=== PATIENT | male | born 1960 | race Caucasian/White ===

== ENCOUNTER 2017-07-12 13:40 | Inpatient (IN) | payer OTHER ==
[2017-07-12] MEDS ORDERED: MAGNE/ALUM HYDROXD 30 ML UCUP ONE (13:57)
[2017-07-12] MEDS ORDERED: ONDANSETRON 4 MG/2 ML VIAL ONE (13:57)
[2017-07-12] MEDS ORDERED: MORPHINE 4 MG/ML SYR ONE (13:57)
[2017-07-12] MEDS ORDERED: LIDOCAINE VISCOUS 2% SOLN 15 ML UDC ONE (13:57)
[2017-07-12] MEDS ORDERED: AMIODARONE IN DEXTROSE,ISO-OSM 360 MG/200 ML BAG IV ONE (14:04)
[2017-07-12] MEDS ORDERED: AMIODARONE HCL 150 MG/3 ML INJ IV ONE (14:04)
[2017-07-12] MEDS ORDERED: D5W 0 ML IV ONE (14:05)
[2017-07-12] MEDS ORDERED: Magnesium Sulfate 2gm IVPB 2 G/50 ML BAG IV ONE (14:07)
[2017-07-12] MEDS ORDERED: RSI MEDICATION KIT IV ONE (14:08)
[2017-07-12] MEDS ORDERED: PROPOFOL 1,000 MG/100 ML VIAL IV ONE ×2 (14:15→16:33)
[2017-07-12] MEDS ORDERED: AMIODARONE Inj 900 MG/18 mL (=50 MG/ML) VIAL IV ONE (14:16)
[2017-07-12] MEDS ORDERED: LABETALOL 20 MG/4ML SYRINGE IV ONE (14:16)
[2017-07-12] MEDS ORDERED: HEPARIN 5000 UNIT/ML 1 ML VIAL ONE (14:17)
[2017-07-12] MEDS ORDERED: HEPARIN/D5W 25,000 UNIT/500 ML BAG IV ONE (14:17)
[2017-07-12] MEDS ORDERED: ASPIRIN 600 MG/SUPP PR ONE ×2 (14:27→14:29)
[2017-07-12] MEDS ORDERED: HEPA 1000U/500MLS 0 UNIT/0 ML BAG IV ONE (14:28)
[2017-07-12] MEDS ORDERED: NITROGLYCERIN 100 MCG/ML SYR (for cath lab use only) IV ONE (14:28)
[2017-07-12] MEDS ORDERED: LIDOCAINE 1% 20 ML MDV ONE (14:28)
[2017-07-12] MEDS ORDERED: ATROPINE SULF 1 MG/10 ML SYR IV ONE (14:28)
[2017-07-12] MEDS ORDERED: NA CHLORIDE 0.9% 50 ML ONE (14:28)
[2017-07-12] MEDS ORDERED: NA CHLORIDE 0.9% 0 ML ONE (14:28)
[2017-07-12] MEDS ORDERED: MIDAZOLAM HCL 2 MG/2 ML INJ ONE ×3 (14:29→15:16)
--- NOTE | 2017-07-12 14:31 | RAD REPORT ---
EXAM DESCRIPTION: RAD - Chest Single View - 07/12/2017 2:26 pm CLINICAL HISTORY: Chest pain. COMPARISON: 03/23/2017 FINDINGS: Portable technique limits examination quality. Tip the endotracheal tube is above the norm. The lungs are grossly clear. The heart is upper limit normal in size. No displaced fractures. IMPRESSION: ET tube tip is above the norm.
--- NOTE | 2017-07-12 14:32 | ER ---
Nurse's Notes [facility] Name: Armand Melgoza Age: 56 yrs Sex: Male : 1960 Arrival Date: 07/12/2017 Time: 13:43 Bed External Waiting [place] [place] MD: Diagnosis: ST elevation (STEMI) myocardial infarction of anterior wall;Ventricular tachycardia Presentation: 07/12 13:47 Presenting complaint: Patient states: Sternal chest pain that started suddenly 45 min aj DRESS MARKER after eating lunch. Patient reports pain radiated to left arm and neck. Seen counter waitress/waiter in March, stress test was good. Transition of care: patient was not received from another setting of care. Onset of symptoms was July 12, 2017. Initial Sepsis Screen: Does the patient meet any 2 criteria? No. Patient's initial sepsis screen is negative. Does the patient have a suspected source of infection? No. Patient's initial sepsis screen is negative. Care prior to arrival: None. 13:47 Method Of Arrival: Ambulatory aj 13:47 Acuity: TEAGAN 3 aj Triage Assessment: 13:50 General: Appears in no apparent distress. uncomfortable, Behavior is calm, cooperative, aj appropriate for age. Pain: Complains of pain in chest Pain radiates to left arm Pain currently is 4 out of 10 on a pain scale. Neuro: Level of Consciousness is awake, alert, obeys commands, Oriented to person, place, time, situation. Cardiovascular: Reports chest pain, Capillary refill < 3 seconds in bilateral fingers Patient's skin is warm and dry. Respiratory: Airway is patent Respiratory effort is even, unlabored, Respiratory pattern is regular, symmetrical. GI: No signs and/or symptoms were reported involving the gastrointestinal system. Derm: Skin is intact, is healthy with good turgor, Skin is pink, warm \T\ dry. normal. Historical: - Allergies: 13:50 Sulfa (Sulfonamide Antibiotics); aj - Home Meds: 13:50 None [Active]; aj - PMHx: 13:50 None; aj - PSHx: 13:50 Back; aj - Immunization history:: Adult Immunizations up to date. - Social history:: Smoking status: Patient/guardian denies using tobacco. - Family history:: not pertinent. - Hospitalizations: : No recent hospitalization is reported. Screenin:55 Abuse screen: Denies threats or abuse. Denies injuries from another. Nutritional aj screening: No deficits noted. Tuberculosis screening: No symptoms or risk factors identified. Fall Risk None identified. Assessment: 13:53 Reassessment: No changes from previously documented assessment. See triage. aj 14:00 Reassessment: Entered patient's room and administered GI cocktail. Patient took aj medication with no difficulty. Reported pain increased from 4/10-8/10. Approximately 30 seconds after drinking GI Cocktail patient became unresponsive and monitor displayed Vtach. Patient stopped breathing and no pulse was palpated. CPR initiated and code 99 called. 14:02 General: Appears distressed, Behavior is unresponsive. Cardiovascular: Rhythm is aj ventricular tachycardia. Respiratory: Airway is compromised Respiratory effort is relaxed, Respiratory pattern is hypoventilation. Vital Signs: 13:50 BP 161 / 113; Pulse 78; Resp 19; Temp 97.8; Pulse Ox 97% on R/A; Weight 111.13 kg; aj Height 5 ft. 10 in. (177.80 cm); Pain 4/10; 14:16 BP 184 / 108; Pulse 125; Resp 14 A; Pulse Ox 100% on ETT vent; aj 14:35 BP 97 / 83; Pulse 89; Resp 14 A; Pulse Ox 100% on ETT vent; aj 13:50 Body Mass Index 35.15 (111.13 kg, 177.80 cm) aj ED Course: 13:43 Patient arrived in ED. tw3 13:47 Gudelia Silverman, RN is Primary Nurse. aj 13:48 Pedro Brady MD is Attending Physician. gs 13:48 Attending Physician role handed off by Pedro Brady MD rn 13:48 Jim Brock MD is Attending Physician. rn 13:50 Triage completed. aj 13:50 Arm band placed on left wrist. Patient placed in an exam room. EKG completed in triage. aj Results shown to MD. 13:50 Patient has correct armband on for positive identification. Placed in gown. Bed in low aj position. network consultant on. Pulse ox on. NIBP on. 13:53 Inserted saline lock: 20 gauge in right antecubital area, using aseptic technique. aj Blood collected. By Luis associate marketing manager. 14:02 Assist provider with cardioversion (unsynchronized) with pads, for treatment of V tach aj with 150 joules Set up for procedure. Performed by Jim Brock MD Monitored with avionics repair technician, pulse ox, Post procedure rhythm is sinus rhythm. Patient tolerated well. O2 via BVM mask. 14:03 EKG done, by septic tank service technician. reviewed by Jim Brock MD. tc 14:05 Assist provider with cardioversion (unsynchronized) with pads, for treatment of V tach aj with 200 joules Post procedure rhythm is sinus rhythm. Patient tolerated well. 14:10 Inserted saline lock: 18 gauge in left antecubital area, using aseptic technique. aj 14:14 Assisted provider with intubation using 7.5 mm ETT via oral route. ET tube secured at Set up intubation tray. Intubated by Jim Brock MD Placement verified by CO2 detector w/ + color change, auscultating bilateral breath sounds, Patient tolerated well. 14:21 Inserted saline lock: 20 gauge in right hand, using aseptic technique. aj 14:24 Hernandez cath inserted, using sterile technique, 16 Fr., by ms, balloon inflated. aj 14:25 X-ray completed. Portable x-ray completed in exam room. Patient tolerated procedure sw well. 14:26 XRAY Chest (1 view) In Process Unspecified. EDMS 14:31 Rosemary Olson MD is Hospitalizing Provider. rn 14:35 Report given to senior laboratory technician. aj 15:18 Assist provider with cardioversion (unsynchronized) with pads, for treatment of V tach aj with 200 joules Set up for procedure. Performed by Gudelia Silverman RN Monitored with avionics repair technician, pulse ox, Post procedure rhythm is sinus rhythm. Patient tolerated well. 15:20 Primary Nurse role handed off by Gudelia Silverman, ZACK aj Administered Medications: 13:52 Drug: GI Cocktail without - (Maalox Suspension 30 ml, Lidocaine Liquid 2 % 15 aj ml) Route: PO; 15:33 Follow up: Response: Other aj 14:07 Drug: amiodarone 150 mg Volume: 100 ml; Route: IVPB; Infused Over: 10 mins; Site: right aj antecubital; 15:30 Follow up: Response: Cardiac rhythm changed; IV Status: Completed infusion; IV Intake: aj 100ml 14:09 Drug: Magnesium Sulfate 2 grams Route: IVPB; Site: right antecubital; aj 15:28 Follow up: Response: Cardiac rhythm changed; IV Status: Completed infusion aj 14:10 Drug: Etomidate 20 mg Route: IVP; Site: left antecubital; aj 15:29 Follow up: Response: No adverse reaction aj 14:10 Drug: Succinylcholine 120 mg Route: IVP; Site: right antecubital; aj 15:29 Follow up: Response: No adverse reaction aj 14:16 Drug: Propofol 5 mcg/kg/min Route: IV; Rate: calculated rate; Site: left antecubital; aj 15:28 Follow up: Response: No adverse reaction; IV Status: Infusion continued upon transfer aj 14:17 Drug: amiodarone 900 mg, D5W 500 ml Route: IVPB; Rate: 1 mg/min; Site: right aj antecubital; 15:33 Follow up: IV Status: Infusion continued upon transfer aj 14:21 Drug: Labetalol 5 mg Route: IVP; Infused Over: 2 mins; Site: right antecubital; aj 15:33 Follow up: Response: Blood pressure is lowered aj 14:23 Drug: Heparin (TN-Bolus No thrombolytic) - HEParin 60 units/kg {Co-Signature: hb aj (Rafaela Wright RN).} Route: IVP; Site: left antecubital; 15:32 Follow up: Response: No adverse reaction aj 14:26 Drug: Heparin (TN Drip) 12 units/kg/hr - (HEParin 67810 units, D5W 500 ml) aj {Co-Signature: hb (Rafaela Wright RN).} Route: IV; Rate: calculated rate; Site: right hand; 15:31 Follow up: Response: No adverse reaction; IV Status: Infusion continued upon transfer aj 14:28 Drug: morphine 4 mg Route: IVP; Site: right hand; aj 15:34 Follow up: Response: Pain is decreased aj 14:28 Drug: Zofran 4 mg Route: IVP; Site: right hand; aj 15:34 Follow up: Response: No adverse reaction; No change in condition aj 14:29 Drug: Aspirin Suppository 300 mg Route: NJ; aj 15:29 Follow up: Response: No adverse reaction aj 14:31 Drug: Versed 2 mg Route: IVP; Site: right hand; aj 15:29 Follow up: Response: Other aj Intake: 15:30 IV: 100ml; Total: 100ml. aj Outcome: 14:31 Decision to Hospitalize by Provider. rn 15:05 Patient left the ED. ag 15:35 Patient left the ED. aj Signatures: Dispatcher [employer] Gudelia Lomas RN RN aj Nieto, Roman, MD MD rn Alexandra Masterson, [facility] Chichi Browning Shannon sw Wade, [facility] tw3 Pedro Brady MD MD gs Heather Baxter RN hb
--- NOTE | 2017-07-12 14:33 | EDPHYS ---
Physician Documentation [facility] Name: Armand Melgoza Age: 56 yrs Sex: Male : 1960 Arrival Date: 07/12/2017 Time: 13:43 Bed External Waiting Private MD: ED Physician Jim Brock HPI: 07/12 13:50 This 56 yrs old Male presents to ER via Ambulatory with complaints of Chest rn Pain. 13:50 The patient or guardian reports chest pain that is located primarily in the substernal rn area. Onset: 45 minute(s) ago. The pain radiates to the left arm, Associated signs and symptoms: Pertinent positives: cough, Pertinent negatives: abdominal pain, diaphoresis, dizziness, lightheadedness, syncope. The chest pain is described as dull, a heaviness. Duration: The patient or guardian reports a single episode, that is still ongoing. Severity of pain: At its worst the pain was moderate in the emergency department the pain has improved. The patient has experienced a previous episode. Reports had just finished eating, felt sudden onset of substernal chest pain, radiates to jaw and left arm, + mild cough and "sinus issues", no fever, states chest pain eval in March, had normal stress test. Pain slowly improving on its own. . Historical: - Allergies: 13:50 Sulfa (Sulfonamide Antibiotics); aj - Home Meds: 13:50 None [Active]; aj - PMHx: 13:50 None; aj - PSHx: 13:50 Back; aj - Immunization history:: Adult Immunizations up to date. - Social history:: Smoking status: Patient/guardian denies using tobacco. - Family history:: not pertinent. - Hospitalizations: : No recent hospitalization is reported. ROS: 13:50 Constitutional: Negative for fever, chills, and weight loss, Eyes: Negative for injury, rn pain, redness, and discharge, Neck: Negative for injury, pain, and swelling, Cardiovascular: Negative for palpitations, and edema, Respiratory: Negative for wheezing, and pleuritic chest pain, Abdomen/GI: Negative for abdominal pain, nausea, vomiting, diarrhea, and constipation, Back: Negative for injury and pain, MS/Extremity: Negative for injury and deformity, Skin: Negative for injury, rash, and discoloration, Neuro: Negative for headache, weakness, numbness, tingling, and seizure. Exam: 13:50 Constitutional: This is a well developed, well nourished patient who is awake, alert, rn appears anxious Head/Face: Normocephalic, atraumatic. Eyes: Pupils equal round and reactive to light, extra-ocular motions intact. Lids and lashes normal. Conjunctiva and sclera are non-icteric and not injected. Cornea within normal limits. Periorbital areas with no swelling, redness, or edema. Neck: Trachea midline, no thyromegaly or masses palpated, and no cervical lymphadenopathy. Supple, full range of motion without nuchal rigidity, or vertebral point tenderness. No Meningismus. Cardiovascular: Regular rate and rhythm with a normal S1 and S2. No gallops, murmurs, or rubs. Normal PMI, no JVD. No pulse deficits. Respiratory: Lungs have equal breath sounds bilaterally, clear to auscultation and percussion. No rales, rhonchi or wheezes noted. No increased work of breathing, no retractions or nasal flaring. Abdomen/GI: Soft, non-tender, with normal bowel sounds. No distension or tympany. No guarding or rebound. No evidence of tenderness throughout. Back: No spinal tenderness. No costovertebral tenderness. Full range of motion. MS/ Extremity: Pulses equal, no cyanosis. Neurovascular intact. Full, normal range of motion. Equal circumference. Neuro: Awake and alert, GCS 15, oriented to person, place, time, and situation. Cranial nerves II-XII grossly intact. Motor strength 5/5 in all extremities. Sensory grossly intact. Cerebellar exam normal. Normal gait. Vital Signs: 13:50 BP 161 / 113; Pulse 78; Resp 19; Temp 97.8; Pulse Ox 97% on R/A; Weight 111.13 kg; aj Height 5 ft. 10 in. (177.80 cm); Pain 4/10; 14:16 BP 184 / 108; Pulse 125; Resp 14 A; Pulse Ox 100% on ETT vent; aj 14:35 BP 97 / 83; Pulse 89; Resp 14 A; Pulse Ox 100% on ETT vent; aj 13:50 Body Mass Index 35.15 (111.13 kg, 177.80 cm) Procedures: 14:39 Cardioversion: (unsynchronized) using defib paddles, for treatment of V tach, with 200 rn joules X 3. Post procedure rhythm is sinus rhythm, the patient tolerated the procedure well. 17:15 Intubation: Ventilated with 100% NRB prior to procedure. O2 saturation prior to per diem rn was 95 %. Intubated orally using # 4 Kenneth blade with 7.5 mm ETT. was successful on first attempt. Cricoid pressure applied during procedure. Tube secured with ETT ritchie at right side of mouth measured 23 cm at lip. Placement verified by CXR, CO2 detector with (+) color change, auscultating bilateral breath sounds, O2 saturation after procedure was 98 %. Patient tolerated well. MDM: 13:48 Patient medically screened. rn 14:19 ED course: Contacted Dr. Michaels, regarding new ecg showing STEMI, cardioverted three rn times due to vtach/torsades, stressed need for cath now, not sure patient is stable enough to transfer, is checking if he has staff to cath here vs transfer. . 14:29 Differential diagnosis: acute myocardial infarction. Data reviewed: vital signs, nurses rn notes, EKG. ED course: Pt with episode of Vtach, shocked 3 times, given magnesium, amiodarone, now irregular but has a pulse, was talking and combative afterwards, intubated for airway protection and control, heparin started, Dr. Michaels states will cath right now, activating team. . 14:32 ED course: Pt with active SD, evolving, waiting on farm labor contractor.. rn 14:41 ED course: Notified Dr. Sparks of admission \\T\\ [id number]. rn 14:44 ED course: Pt just left to farm labor contractor. Sinus rhythm. HR < 100, intubated, good BP.. rn 07/12 13:49 Order name: Basic Metabolic Panel; Complete Time: 08:20 rn 07/12 13:49 Order name: BNP; Complete Time: 08:20 rn 07/12 13:49 Order name: CBC with Diff; Complete Time: 08:20 rn 07/12 13:49 Order name: Ckmb; Complete Time: 08:20 rn 07/12 13:49 Order name: CPK; Complete Time: 08:20 rn 07/12 13:49 Order name: LFT's; Complete Time: 08:20 rn 07/12 13:49 Order name: Troponin (emerg Dept Use Only); Complete Time: 08:20 rn 07/12 13:49 Order name: XRAY Chest (1 view); Complete Time: 14:33 rn 07/12 13:49 Order name: Lipase; Complete Time: 08:20 rn 07/12 13:49 Order name: EKG; Complete Time: 13:49 rn 07/12 13:49 Order name: Cardiac monitoring; Complete Time: 15:09 rn 07/12 13:49 Order name: EKG - Nurse/Tech; Complete Time: 15:09 rn 07/12 13:49 Order name: IV Saline Lock; Complete Time: 15:09 rn 07/12 13:49 Order name: Labs collected and sent; Complete Time: 15:09 rn 07/12 14:41 Order name: EKG Electrocardiogram EDMS 07/12 14:41 Order name: EKG Electrocardiogram EDMS 07/12 13:49 Order name: O2 Per Protocol; Complete Time: 15:10 rn 07/12 13:49 Order name: O2 Sat Monitoring; Complete Time: 15:35 rn EC:34 Rate is 95 beats/min. Rhythm is irregular. NV interval is normal. QRS interval is rn normal. QT interval is normal. No Q waves. T waves are Normal. Clinical impression: Anterior SD - acute. Interpreted by me. Administered Medications: 13:52 Drug: GI Cocktail without - (Maalox Suspension 30 ml, Lidocaine Liquid 2 % 15 aj ml) Route: PO; 15:33 Follow up: Response: Other aj 14:07 Drug: amiodarone 150 mg Volume: 100 ml; Route: IVPB; Infused Over: 10 mins; Site: right aj antecubital; 15:30 Follow up: Response: Cardiac rhythm changed; IV Status: Completed infusion; IV Intake: aj 100ml 14:09 Drug: Magnesium Sulfate 2 grams Route: IVPB; Site: right antecubital; aj 15:28 Follow up: Response: Cardiac rhythm changed; IV Status: Completed infusion aj 14:10 Drug: Etomidate 20 mg Route: IVP; Site: left antecubital; aj 15:29 Follow up: Response: No adverse reaction aj 14:10 Drug: Succinylcholine 120 mg Route: IVP; Site: right antecubital; aj 15:29 Follow up: Response: No adverse reaction aj 14:16 Drug: Propofol 5 mcg/kg/min Route: IV; Rate: calculated rate; Site: left antecubital; aj 15:28 Follow up: Response: No adverse reaction; IV Status: Infusion continued upon transfer aj 14:17 Drug: amiodarone 900 mg, D5W 500 ml Route: IVPB; Rate: 1 mg/min; Site: right aj antecubital; 15:33 Follow up: IV Status: Infusion continued upon transfer aj 14:21 Drug: Labetalol 5 mg Route: IVP; Infused Over: 2 mins; Site: right antecubital; aj 15:33 Follow up: Response: Blood pressure is lowered aj 14:23 Drug: Heparin (SD-Bolus No thrombolytic) - HEParin 60 units/kg {Co-Signature: hb aj (Rafaela Wright RN).} Route: IVP; Site: left antecubital; 15:32 Follow up: Response: No adverse reaction aj 14:26 Drug: Heparin (SD Drip) 12 units/kg/hr - (HEParin 08936 units, D5W 500 ml) aj {Co-Signature: hb (Rafaela Wright RN).} Route: IV; Rate: calculated rate; Site: right hand; 15:31 Follow up: Response: No adverse reaction; IV Status: Infusion continued upon transfer aj 14:28 Drug: morphine 4 mg Route: IVP; Site: right hand; aj 15:34 Follow up: Response: Pain is decreased aj 14:28 Drug: Zofran 4 mg Route: IVP; Site: right hand; aj 15:34 Follow up: Response: No adverse reaction; No change in condition aj 14:29 Drug: Aspirin Suppository 300 mg Route: NV; aj 15:29 Follow up: Response: No adverse reaction aj 14:31 Drug: Versed 2 mg Route: IVP; Site: right hand; aj 15:29 Follow up: Response: Other aj Disposition: 14:29 Critical Care:. rn Disposition: 07/12/17 14:31 Hospitalization ordered by Rosemary Olson for Inpatient Admission. Preliminary diagnosis are ST elevation (STEMI) myocardial infarction of anterior wall, Ventricular tachycardia. - Bed requested for Intensive Care Unit. - Status is Inpatient Admission. aj - Condition is Serious. - Problem is new. - Symptoms have improved. UTI on Admission? No Critical care time excluding procedures: :29 Critical care time: Bedside Care: 25 minutes, Consultation: 5 minutes, Family rn Intervention: 5 minutes. Total time: 35 minutes Signatures: Dispatcher [employer] Gudelia Lomas, RN Denise Henriquez RN RN iw Nieto, Roman, MD MD rn Gallardo, Ana ag Heather Baxter RN hb
[2017-07-12] MEDS ORDERED: HEPA 1000U/500MLS 1,000 UNIT/500 ML BAG IV ONE (15:06)
[2017-07-12 15:31] LABS: Absolute Lymphocytes (CBC) 1.7 K/uL (0.7-4.9); Absolute Monocytes 0.9 K/uL (0.1-1.3); Basophils % 0.9 % (0-1.3); Hematocrit 47.9 % (39.6-49.0); MCH 29.9 pg (27.0-35.0); MCV 88.1 fL (80-100); MPV 8.6 fL (7.6-11.3); Monocytes % 10.5 % (3.3-12.3); RBC Red Blood Cell Count 5.44 M/uL (4.33-5.43)
[2017-07-12] MEDS ORDERED: CLOPIDOGREL 75 MG TABLET ONE (15:45)
[2017-07-12 16:00] LABS: Potassium 3.8 mEq/L (3.6-5.0)
[2017-07-12 16:06] LABS: Albumin 4.5 g/dL (3.2-5.5); Bilirubin Direct 0.1 mg/dL (0-0.2); Protein, Total 7.7 g/dL (6.0-8.3)
[2017-07-12] MEDS ORDERED: NA CHLORIDE 0.9% 1,000 ML ONE ×2 (16:40→17:01)
[2017-07-12] MEDS ORDERED: ONDANSETRON 4 MG/2 ML VIAL IV PRN (17:09)
[2017-07-12 17:11] VITALS: BMI 36.3
--- NOTE | 2017-07-12 17:18 | P.HP ---
Certification for Inpatient Patient admitted to: Inpatient With expected LOS: >2 Midnights Practitioner: I am a practitioner with admitting privileges, knowledge of patient current condition, hospital course, and medical plan of care. Services: Services provided to patient in accordance with Admission requirements found in Title 42 Section 412.3 of the Code of Federal Regulations Patient History Date of Service: 07/12/17 Reason for admission: acute IA History of Present Illness: Mr Melgoza is a 56 years old male who in march start complaining of chest pain episodes. He went to see Dr Hopkins, who did a stress test, and according to his , the study was normal. His symptoms then were assumed as anxiety. Today , after having lunch, Mr Melgoza start with severe chest pain, substernal, 10/10 of intensity, radiated to left arm, associated with nausea and diaphoresis. He asked his to drive him to the hospital. At arrival to ED, while the patient was having his initial assessment, he had an episode of ventricular tachycardia, then he become unresponsive. He got shocked 3 times, and got stabilezed. 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 Initial EKG showed sinus rhythm without ischemic changes, however, after V-Tach episode, new EKG showd ST Elevation on anterior leads. Allergies Sulfa (Sulfonamide Antibiotics) Allergy (Verified 03/23/17 13:50) Itching/Hives/Rash Home Medications: Albuterol Inhaler [Ventolin Inhaler*] 2 puff IH Q6H PRN #1 [email or web address] 03/24/17 - Past Medical/Surgical History Diabetic: No Past Medical History: Reviewed- Non-Contributory -: BACK SURGERY - RUPTURED DISC - Family History Father -: Heart disease, Hypertension, Cancer Notes: SKIN CANCER - Social History Smoking Status: Never smoker (chew tobacco) Alcohol use: Yes CD- Drugs: No Caffeine use: Yes Place of Residence: Home Review of Systems is unable to be obtained Physical Examination - Physical Exam General: In no apparent distress, Other (sedated) HEENT: Atraumatic, PERRLA, Mucous membr. moist/pink, Sclerae nonicteric Neck: Supple, 2+ carotid pulse no bruit, No LAD, Without JVD or thyroid abnormality Respiratory: Clear to auscultation bilaterally, Normal air movement Cardiovascular: Regular rate/rhythm, Normal S1 S2 Gastrointestinal: Normal bowel sounds, No tenderness Musculoskeletal: No tenderness Integumentary: No rashes Neurological: Normal tone, Sensation intact, Normal reflexes 2+ Lymphatics: No axilla or inguinal lymphadenopathy - Studies Laboratory Data (last 24 hrs) 07/12/17 13:50: WBC 8.7, Hgb 16.3, Hct 47.9, Plt Count 272 07/12/17 13:50: B-Natriuretic Peptide 13 07/12/17 13:50: Sodium 141, Potassium 3.8, BUN 24 H, Creatinine 1.24, Glucose 77 , Total Bilirubin 1.0, AST 26, ALT 41, Alkaline Phosphatase 61, Lipase 46 Assessment and Plan - Problems (Diagnosis) (1) STEMI (ST elevation myocardial infarction) Current Visit: Yes Status: Acute Qualifiers: Involved coronary artery: LAD coronary artery Qualified Code(s): I21.02 - ST elevation (STEMI) myocardial infarction involving left anterior descending coronary artery (2) Cardiac arrest Current Visit: Yes Status: Acute (3) Sustained VT (ventricular tachycardia) Current Visit: Yes Status: Acute (4) Obesity Current Visit: Yes Status: Acute Qualifiers: Obesity type: due to excess calories Obesity classification: adult class 2 (BMI 35 - 39.9) Serious obesity comorbidity presence: unspecified whether serious comorbidity present Body mass index: BMI 36.0-36.9 Qualified Code(s) : E66.09 - Other obesity due to excess calories; Z68.36 - Body mass index (BMI) 36.0-36.9, adult; Z68.36 - Body mass index (BMI) 36.0-36.9, adult - Plan The patient was taken to analytical laboratory technician, it was found 2 lesions at LAD, 100% and 99%. He had placed 2 stents. The patient then went to ICU, remain intubated. Will follow up Cardiology team recommendations. - Advance Directives Does patient have a Living Will: Yes Does patient have a Durable POA for Healthcare: Yes - Code Status/Comfort Care Code Status Assessed: Yes Code Status: Full Code
[2017-07-12] MEDS ORDERED: NITROGLYCERIN 0.4 MG/TAB SL PRN (17:22)
[2017-07-12] MEDS ORDERED: FENTANYL CITR 100 MCG/2 ML IV PRN (17:32)
[2017-07-12] MEDS ORDERED: HALOPERIDOL LACT 5 MG/ML INJ IV PRN (17:32)
[2017-07-12] MEDS ORDERED: MIDAZOLAM HCL 2 MG/2 ML INJ IV PRN (17:32)
[2017-07-12] MEDS ORDERED: LORazepam 2 MG/ML VIAL IV PRN (17:32)
[2017-07-12] MEDS ORDERED: SUCCINYLCHOLINE 20 MG/ML (10 ML) IV ONE (17:37)
[2017-07-12] MEDS ORDERED: ETOMIDATE 20 MG/10 ML VIAL IV ONE (17:37)
[2017-07-12] MEDS ORDERED: NA CHLORIDE 0.9% 1,000 ML IV SCH (18:00)
[2017-07-12] MEDS: PROPOFOL 1,000 MG/100 ML VIAL IV PRN (20:00)
[2017-07-12] MEDS ORDERED: AMIODARONE HCL 900 MG in Dextrose 5%-Water 482 ML IV SCH (20:00)
[2017-07-12] MEDS: ATORVASTATIN 80 MG TAB PO SCH (21:50)
[2017-07-12] MEDS: FAMOTIDINE 20 MG/2 ML VIAL IV SCH (22:30)
[2017-07-13] MEDS: PROPOFOL 1,000 MG/100 ML VIAL IV PRN ×5 (01:30→14:00)
--- NOTE | 2017-07-13 01:44 | CON ---
History Of Present Illness: Mr. Melgoza is a 56-year-old white male without any significant past medi tanya history. He was admitted on 07/12/2017 through the emergency room with acute OH and sudden , status post cardioversion and intubation. The patient was seen and taken to the catheterization laboratory technician that same day from the emergency room for emergency heart catheterization, which ended up with angioplasty and stent of his LAD. Apparently, he is 56 years old. Has no previous cardiac past medical history. C omplained suddenly of chest pain and impending doom at home, was brought to the emergency room by his . When they got to the emergency room, the patient had a cardiac arrest, ventricular fibrillati on, torsades de pointes, intubated, shocked, successfully back in normal rhythm but showed an acute a nterolateral OH and I was consulted. The patient was taken from the emergency room to the catheterization laboratory technician f or emergency heart catheterization. Past Medical History: Negative. Allergies: INCLUDE SULFA. Review of Systems: Negative. Social History: Negative. Family History: Noncontributory. Medications: At home are none. Physical Examination: General: He appeared to be rather obese. Vital Signs: In the catheterization laboratory technician were within normal limits. His blood pressure was 110/70. His pulse w as 80 with occasional PVCs and triplets. HEENT: Negative. The patient was intubated. Neck: Supple without any bruit, JVD, or thyromegaly. Chest: Clear. Cardiac: Revealed a regular rhythm and rate with occasional ectopy. Abdomen: Obese. Extremities: Revealed trace edema. Diagnostic Data: His chest x-ray was normal. EKG showed acute anterolateral OH. Troponin is elevat ed. Rest of the blood work was adequate. Impression And Plan: The patient is status post acute anterolateral myocardial infarction, status po st cardiac arrest secondary to ventricular fibrillation and torsades de pointes, intubated. We will take him to the catheterization laboratory technician emergently for a cardiac catheterization to define his coronary anatomy and hopefully intervene successfully. We will continue IV amiodarone for now. We will stop the heparin for the catheterization laboratory technician procedure and we will decide on further therapy after the catheterization. BEVERLY/SANYA Voice ID: [id number] Report ID: [id number]
--- NOTE | 2017-07-13 04:41 | OP ---
Surgeon: Alexandr Michaels MD Equal Opportunity Representative: Maisha Preston. Procedure: Emergency heart catheterization, angioplasty and stent of the LAD, selective coronary art martha angiogram and left ventriculogram. Indication: Acute MD and status post cardiac arrest. Mr. Melgoza is a 56-year-old white male, erin t to the emergency room in cardiac arrest and torsades de pointes. After cardioversion, he had an ac [place] anterolateral MD. He was intubated. I was consulted. The patient was brought to the hemodialysis lab technician, intubated with anesthesia on board on protocol. Received some additional Versed for sedation because of agitation. Description Of Procedure: He was prepped and draped in the routine sterile fashion. A 6-Malawian roach th was introduced in the right common femoral artery and StarClose was to be used to close the case, but we left sheath in for an arterial line since he was going to be in the ICU, intubated for blood g as monitoring. Deejay catheter 6-Malawian was introduced, injected the left main, which showed a comp lete occlusion of the LAD close to the ostium. RCA was large dominant. Circumflex was small and non dominant, but normal. RCA was free of disease. An XBLAD 3.5 catheter with side holes was used as a guide. Wanette wire was used to cross the lesion successfully. Multiple dilatations with a 2.5 x 15 Emerge balloon re-established flow. It was obvious he had a very proximal stenosis and a sequential stenosis just distal to that before the first diagonal. Two overlapping stents 2.5 x 12 and 2 x 16 S ynergy stent was used after multiple dilatation of the balloon. The result was 0% residual. Left ve ntriculogram was done showing no wall motion abnormalities. There were no arrhythmias during the pro cedure. ST elevation subsided after the stent. Total conscious sedation was 45 minutes. Complications: None. Blood Loss: 5 cc. Final Diagnosis: Status post acute anterolateral myocardial infarction, status post successful angio plasty and stent of the LAD. The patient received Angiomax during the procedure. He was on heparin and amiodarone drip and he came to the hemodialysis lab technician. Heparin was stopped. 600 mg of Plavix were given b y the NG tube. Aspirin 325 mg was given by the NG tube. Operators: Myself. Plan: To send him to the ICU hopefully extubating the next day or so. Case was discussed with the nini manley and Dr. Brock in the emergency room. BEVERLY/SANYA Voice ID: [id number] Report ID: [id number]
[2017-07-13 05:15] LABS: Absolute Lymphocytes (CBC) 1.1 K/uL (0.7-4.9); Absolute Neutrophil 11.6 K/uL (1.8-8.0); Basophils % 0.4 % (0-1.3); Eosinophils % 0.5 % (0-4.4); Hematocrit 45.1 % (39.6-49.0); Lymphocytes % 7.7 % (15.3-44.8); MCH 29.4 pg (27.0-35.0); MCV 88.7 fL (80-100); MPV 8.4 fL (7.6-11.3); Monocytes % 7.5 % (3.3-12.3); RBC Red Blood Cell Count 5.09 M/uL (4.33-5.43)
[2017-07-13 05:23] LABS: Potassium 3.9 mEq/L (3.6-5.0)
[2017-07-13 05:54] LABS: Arterial Blood Carboxyhemoglob 1.3 % (0-1.5); Blood Gas Oxyhemoglobin 91.6 % (94-97); Blood O2 Saturation 94.5 % (92-98.5)
--- NOTE | 2017-07-13 06:58 | EKG ---
Test Date: 2017-07-12 Test Time: 14:25:25 Usability Strategist: JACKIE MEASUREMENT RESULTS: Intervals: Rate: 95 [place]: 172 QRSD: 112 QT: 380 QTc: 477 [place]: P: 72 [place]: 172 QRS: -16 T: -28 INTERPRETIVE STATEMENTS: Sinus rhythm with fusion complexes Voltage criteria for left ventricular hypertrophy Anteroseptal infarct, possibly acute Lateral injury pattern ACUTE [place] Abnormal ECG Compared to ECG 07/12/2017 14:13:24 Fusion complex(es) now present Atrial fibrillation no longer present Ventricular premature complex(es) no longer present Left-axis deviation no longer present ST (T wave) deviation no longer present Myocardial infarct finding still present Electronically Signed On 07-13-17 06:57:52 CDT by Zackary Clements
--- NOTE | 2017-07-13 06:59 | EKG ---
Test Date: 2017-07-12 Test Time: 13:43:13 Research Chemist: STACIE MEASUREMENT RESULTS: Intervals: Rate: 77 [place]: 166 QRSD: 84 QT: 412 QTc: 466 [place]: P: 40 [place]: 166 QRS: -18 T: 58 INTERPRETIVE STATEMENTS: Sinus rhythm with premature atrial complexes with aberrant conduction Otherwise normal ECG Compared to ECG 03/23/2017 10:58:47 Atrial premature complex(es) now present Aberrant conduction of supraventricular beat(s) now present Ventricular premature complex(es) no longer present Electronically Signed On 07-13-17 06:59:14 CDT by Zackary Clements
--- NOTE | 2017-07-13 06:59 | EKG ---
Test Date: 2017-07-12 Test Time: 14:13:24 Watch Inspector Final Movement: JACKIE MEASUREMENT RESULTS: Intervals: Rate: 154 [place]: QRSD: 90 QT: 304 QTc: 486 [place]: P: [place]: QRS: -38 T: -40 INTERPRETIVE STATEMENTS: Atrial fibrillation with rapid ventricular response with premature ventricular or aberrantly conducted complexes Left axis deviation ST elevation, consider anterolateral injury or acute infarct ACUTE [place] Abnormal ECG Compared to ECG 07/12/2017 13:43:13 Acute myocardial infarct finding now present Sinus rhythm no longer present Electronically Signed On 07-13-17 06:59:06 CDT by Zackary Clements
--- NOTE | 2017-07-13 07:07 | RAD REPORT ---
EXAM DESCRIPTION: RAD - Chest Single View - 07/13/2017 6:41 am CLINICAL HISTORY: Respiratory distress, intubation COMPARISON: July 12 TECHNIQUE: AP portable chest image was obtained 0628 hours . FINDINGS: Lung volumes are low. No new infiltrate, mass or pulmonary edema. Heart size and vasculatu re within normal limits for supine portable imaging. ET tube remains in good position mid aortic arch , several cm above the norm. NG tube is in place. Tip and side port are within the stomach which is now decompressed. No pneumothorax or large pleural effusion. No gross bony abnormality seen. No acut e aortic findings suspected. IMPRESSION: No new or progressive pulmonary edema, infiltrate or lung parenchymal abnormality. ET tube in good position. NG tube placement with tip and side port within a decompressed stomach.
[2017-07-13] MEDS ORDERED: ASPIRIN EC 81 MG TAB PO SCH (09:00)
--- NOTE | 2017-07-13 09:14 | EKG ---
Test Date: 2017-07-13 Test Time: 08:51:39 Gas Derrick Operator: LIAN MEASUREMENT RESULTS: Intervals: Rate: 80 [place]: 158 QRSD: 86 QT: 394 QTc: 454 [place]: P: 32 [place]: 158 QRS: 3 T: 59 INTERPRETIVE STATEMENTS: Normal sinus rhythm Nonspecific T wave abnormality Abnormal ECG Compared to ECG 07/12/2017 14:25:25 T-wave abnormality now present Fusion complex(es) no longer present Left ventricular hypertrophy no longer present Myocardial infarct finding no longer present Electronically Signed On 07-13-17 09:14:14 CDT by Zackary Clements
[2017-07-13 09:28] LABS: Magnesium 2.3 mg/dL (1.8-2.5); Phosphorus 2.9 mg/dL (2.5-4.3)
[2017-07-13] MEDS: CLOPIDOGREL 75 MG TABLET PO SCH (09:37)
[2017-07-13] MEDS: ASPIRIN 81 MG CHEWABLE TABLET PO SCH (09:37)
[2017-07-13] MEDS: FAMOTIDINE 20 MG/2 ML VIAL IV SCH ×2 (10:19→21:58)
[2017-07-13] MEDS ORDERED: AMIODARONE HCL IV SCH (11:00)
[2017-07-13] MEDS ORDERED: D5W IV SCH (11:00)
--- NOTE | 2017-07-13 12:06 | P.CNS ---
Date of Consult: 07/13/17 Reason for Consult: Cardiac arrest status post stent placement Chief Complaint: acute CA History of Present Illness: Patient is 50s past 6 years of age admitted with an acute CA status post stent placement cardioversion currently on a ventilator was admitted with sudden onset of chest pain VFib was found to have an anterolateral CA. Patient is currently stable on a ventilator and propofol drip. No significant past medical history the was recently evaluated by Cardiology and had a stress test done Allergies Sulfa (Sulfonamide Antibiotics) Allergy (Verified 03/23/17 13:50) Itching/Hives/Rash Home Medications: NK [No Home Meds] 07/12/17 - Past Medical/Surgical History Diabetic: No -: BACK SURGERY - RUPTURED DISC - Family History Father Medical History: Heart disease, Hypertension, Cancer Notes: SKIN CANCER Mother History Unknown: Yes Medical History: Diabetes - Social History Alcohol use: Yes CD- Drugs: No Caffeine use: Yes Place of Residence: Home Review of Systems is unable to be obtained Physical Examination Temp Pulse Resp BP Pulse Ox 98.9 F 74 17 119/67 94 07/13/17 04:00 07/13/17 11:00 07/13/17 09:00 07/13/17 11:00 07/13/17 11:00 General: Unresponsive Neck: Supple Respiratory: Clear to auscultation bilaterally Cardiovascular: No edema, Regular rate/rhythm Gastrointestinal: Normal bowel sounds, Soft and benign Laboratory Data (last 24 hrs) 07/12/17 13:50: WBC 8.7, Hgb 16.3, Hct 47.9, Plt Count 272 07/12/17 13:50: B-Natriuretic Peptide 13 07/12/17 13:50: Sodium 141, Potassium 3.8, BUN 24 H, Creatinine 1.24, Glucose 77 , Total Bilirubin 1.0, AST 26, ALT 41, Alkaline Phosphatase 61, Lipase 46 - Problems (1) Cardiac arrest Onset Date: 07/13/17 Current Visit: Yes Status: Acute Plan: Patient is 56 years of age no significant past medical history admitted with cardiac arrest status post angioplasty labs all reviewed unremarkable apart from elevated troponin continue with supportive her evaluate mental status tomorrow continue with full ventilatory support and sedation for today
--- NOTE | 2017-07-13 12:29 | PN ---
Subjective: Mr. Megloza is 1-day status post acute coronary intervention for an ST-elevation CA to pr oximal LAD with ventricular fibrillation, cardiac arrest, and shock. The patient is still intubated in ICU, sedated. I have asked everyone to keep him sedated until after the sheath is removed. The s mirna is in place. The groin site does not have swelling or bleeding. He has not had any Lovenox or Angiomax in some 20 hours now, so it is a good time to remove the sheath. We used a StarClose devic e at the bedside. I think we could start to allow him to wake up sometime this afternoon, perhaps ex tubate, but I would rather not have an extubation attempt done until this afternoon at the earliest. ELIZABETH/SANYA Voice ID: [id number] Report ID: [id number]
--- NOTE | 2017-07-13 14:09 | P.PN ---
Subjective Date of Service: 07/13/17 Chief Complaint: acute DC Continue mechanical ventiltor support for today. Physical Examination - Vital Signs Temperature: 98.9 F Blood Pressure: 119/67 Pulse: 74 Respirations: 17 Pulse Ox (%): 94 - Physical Exam General: Other (sedated ) Neck: Supple, JVD not distended Respiratory: Clear to auscultation bilaterally, Normal air movement Cardiovascular: Regular rate/rhythm, Normal S1 S2 Gastrointestinal: Normal bowel sounds, No tenderness Musculoskeletal: No tenderness Integumentary: No rashes - Studies Laboratory Data (last 24 hrs) 07/12/17 13:50: WBC 8.7, Hgb 16.3, Hct 47.9, Plt Count 272 07/12/17 13:50: B-Natriuretic Peptide 13 07/12/17 13:50: Sodium 141, Potassium 3.8, BUN 24 H, Creatinine 1.24, Glucose 77 , Total Bilirubin 1.0, AST 26, ALT 41, Alkaline Phosphatase 61, Lipase 46 Medications List Reviewed: Yes Assessment And Plan - Current Problems (Diagnosis) (1) STEMI (ST elevation myocardial infarction) Onset Date: 07/13/17 Current Visit: Yes Status: Acute Qualifiers: Involved coronary artery: LAD coronary artery Qualified Code(s): I21.02 - ST elevation (STEMI) myocardial infarction involving left anterior descending coronary artery (2) Cardiac arrest Onset Date: 07/13/17 Current Visit: Yes Status: Acute (3) Sustained VT (ventricular tachycardia) Onset Date: 07/13/17 Current Visit: Yes Status: Acute (4) Obesity Onset Date: 07/13/17 Current Visit: Yes Status: Acute Qualifiers: Obesity type: due to excess calories Obesity classification: adult class 2 (BMI 35 - 39.9) Serious obesity comorbidity presence: unspecified whether serious comorbidity present Body mass index: BMI 36.0-36.9 Qualified Code(s) : E66.09 - Other obesity due to excess calories; Z68.36 - Body mass index (BMI) 36.0-36.9, adult; Z68.36 - Body mass index (BMI) 36.0-36.9, adult - Plan 1) STEMI: Heart cath shows 2 lesions in LED, requiring 2 stent placement. Continue on Ventilator support for at least 1 more day, at this point patient is stable. Continue F/U by Dr Dailey and Dr Clements.
[2017-07-13] MEDS ORDERED: EPINEPHrine 1 MG/10 ML SYR IV ONE (14:28)
[2017-07-13] MEDS ORDERED: MAGNESIUM SULF 1GM/2ML VIAL IV ONE (14:28)
[2017-07-13] MEDS ORDERED: METOPROLOL TAR 50 MG TAB PO ONE (19:25)
[2017-07-13] MEDS ORDERED: METOPROLOL TAR 50 MG TAB ONE (19:27)
--- NOTE | 2017-07-13 20:40 | EKG ---
Test Date: 2017-07-13 Test Time: 17:46:56 Speedometer Mechanic: ISAÍAS MEASUREMENT RESULTS: Intervals: Rate: 90 [place]: 158 QRSD: 96 QT: 400 QTc: 489 [place]: P: 33 [place]: 158 QRS: 11 T: 83 INTERPRETIVE STATEMENTS: Normal sinus rhythm Anteroseptal infarct, possibly acute Lateral injury pattern Abnormal ECG Compared to ECG 07/13/2017 08:51:39 Myocardial infarct finding now present Electronically Signed On 07-13-17 20:40:23 CDT by Zackary Clements
[2017-07-13] MEDS ORDERED: HYDROCORTISONE SUC 100 MG INJ IV SCH (21:00)
[2017-07-13] MEDS: ATORVASTATIN 80 MG TAB PO SCH (21:57)
[2017-07-13] MEDS: Morphine 2 MG/2 ML SYR IV PRN (23:09)
[2017-07-14] MEDS: Morphine 2 MG/2 ML SYR IV PRN ×2 (04:00→19:40)
[2017-07-14 05:10] LABS: Absolute Lymphocytes (CBC) 1.1 K/uL (0.7-4.9); Absolute Monocytes 1.3 K/uL (0.1-1.3); Absolute Neutrophil 11.3 K/uL (1.8-8.0); Basophils % 0.7 % (0-1.3); Eosinophils % 0.5 % (0-4.4); Hematocrit 42.1 % (39.6-49.0); Lymphocytes % 8.1 % (15.3-44.8); MCH 29.3 pg (27.0-35.0); MCV 88.9 fL (80-100); MPV 8.6 fL (7.6-11.3); Monocytes % 9.2 % (3.3-12.3); RBC Red Blood Cell Count 4.73 M/uL (4.33-5.43)
[2017-07-14 05:47] LABS: Albumin 3.6 g/dL (3.2-5.5); Bilirubin Total 1.6 mg/dL (0.3-1.2); Phosphorus 2.8 mg/dL (2.5-4.3); Potassium 4.1 mEq/L (3.6-5.0); Protein, Total 6.4 g/dL (6.0-8.3)
[2017-07-14] MEDS: METOPROLOL TAR 50 MG TAB PO SCH ×3 (06:22→22:17)
[2017-07-14] MEDS ORDERED: COLCHICINE 0.6 MG TAB PO PRN (08:35)
[2017-07-14] MEDS: CLOPIDOGREL 75 MG TABLET PO SCH (08:57)
[2017-07-14] MEDS: ASPIRIN 81 MG CHEWABLE TABLET PO SCH (08:57)
[2017-07-14] MEDS: COLCHICINE 0.6 MG TAB PO SCH ×2 (08:58→22:17)
[2017-07-14] MEDS: FAMOTIDINE 20 MG/2 ML VIAL IV SCH (09:00)
--- NOTE | 2017-07-14 09:36 | P.PN ---
Subjective Date of Service: 07/14/17 Chief Complaint: acute PA The patient is awake and alert, extubated yesterday, no chest pain, no SOB. Physical Examination - Vital Signs Temperature: 98.8 F Blood Pressure: 104/67 Pulse: 63 Respirations: 16 Pulse Ox (%): 95 - Physical Exam General: Alert, In no apparent distress Respiratory: Clear to auscultation bilaterally, Normal air movement Cardiovascular: Regular rate/rhythm, Normal S1 S2 Gastrointestinal: Normal bowel sounds, No tenderness Musculoskeletal: No tenderness Integumentary: Skin lesion (bilateral arm erithema aroud IV site) Neurological: Normal speech, Normal tone, Normal affect - Studies Medications List Reviewed: Yes Assessment And Plan - Current Problems (Diagnosis) (1) STEMI (ST elevation myocardial infarction) Onset Date: 07/13/17 Current Visit: Yes Status: Acute Qualifiers: Involved coronary artery: LAD coronary artery Qualified Code(s): I21.02 - ST elevation (STEMI) myocardial infarction involving left anterior descending coronary artery (2) Cardiac arrest Onset Date: 07/13/17 Current Visit: Yes Status: Acute (3) Sustained VT (ventricular tachycardia) Onset Date: 07/13/17 Current Visit: Yes Status: Acute (4) Obesity Onset Date: 07/13/17 Current Visit: Yes Status: Acute Qualifiers: Obesity type: due to excess calories Obesity classification: adult class 2 (BMI 35 - 39.9) Serious obesity comorbidity presence: unspecified whether serious comorbidity present Body mass index: BMI 36.0-36.9 Qualified Code(s) : E66.09 - Other obesity due to excess calories; Z68.36 - Body mass index (BMI) 36.0-36.9, adult; Z68.36 - Body mass index (BMI) 36.0-36.9, adult - Plan 1) STEMI: Heart cath on 07/12/17, shows 2 lesions in LED, requiring 2 stent placement. He remain intubated for 24 Hr, he was successfully extubated yesterday night. Currently the patient is asymtpomatic, hemodynamically stable. Continue beta blocier, plavix, asa, statins. plan to transfer to medical floor. Follow up Cardiology recommendations.
--- NOTE | 2017-07-14 11:37 | RAD REPORT ---
EXAM DESCRIPTION: VAS - Extrem Venous W Compress Alejandro - 07/14/2017 11:03 am CLINICAL HISTORY: Arm pain and swelling. COMPARISON: None. TECHNIQUE: Real-time sonographic interrogation of the left and right upper extremity deep venous sys tems was performed. FINDINGS: Normal compressibility, flow augmentation, phasic flow and spontaneous flow is identified in both the left and right upper extremity deep venous systems. Thrombus is present in the right cephalic vein proximal to distal. Thrombus is also present in the ce phalic vein on the left the distal to mid forearm. IMPRESSION: Thrombosis involving both cephalic veins is present as detailed. Nurse Yajaira in the ICU was notified 07/14/17 at 11:33 am by telephone.
[2017-07-14] MEDS: Enoxaparin 120 MG/0.8 ML SYR SQ SCH ×2 (12:56→22:18)
--- NOTE | 2017-07-14 15:40 | EKG ---
Test Date: 2017-07-14 Test Time: 04:12:12 Aluminizer: RT T MEASUREMENT RESULTS: Intervals: Rate: 62 RI: 170 QRSD: 100 QT: 448 QTc: 454 [place]: P: 39 RI: 170 QRS: 8 T: 92 INTERPRETIVE STATEMENTS: Normal sinus rhythm Septal infarct, age undetermined Abnormal ECG Compared to ECG 07/13/2017 17:46:56 No significant changes Electronically Signed On 07-14-17 15:37:50 CDT by Alexandr Michaels
--- NOTE | 2017-07-14 16:53 | ECHO ---
HEIGHT: 5 ft 10 in WEIGHT: 253 lb 0 oz DATE OF STUDY: 07/14/[address]: Zackary Clements MD 2-DIMENSIONAL: YES M.MODE: YES DOPPLER: YES COLOR FLOW: YES TDS: PORTABLE: DEFINITY: BUBBLE STUDY: DIAGNOSIS: CONGEATIVE HEART FAILURE CARDIAC HISTORY: CATHERIZATION: YES SURGERY: YES PROSTHETIC VALVE: NO PACEMAKER: NO MEASUREMENTS (cm) DIASTOLIC (NORMALS) SYSTOLIC (NORMALS) IVSd 1.2 (0.6-1.2) LA Diam 3.8 (1.9-4.0) LVEF 55% LVIDd 4.9 (3.5-5.7) LVIDs 3.5 (2.0-3.5) %FS 29% LVPWd 1.1 (0.6-1.2) Ao Diam (2.0-3.7) 2 DIMENSIONAL ASSESSMENT: RIGHT ATRIUM: NORMAL LEFT ATRIUM: NORMAL RIGHT VENTRICLE: NORMAL LEFT VENTRICLE: NORMAL TRICUSPID VALVE: NORMAL MITRAL VALVE: NORMAL PULMONIC VALVE: NORMAL AORTIC VALVE: NORMAL PERICARDIAL EFFUSION: NONE AORTIC ROOT: NORMAL LEFT VENTRICULAR WALL MOTION: MILD ANTEROAPICAL HYPOKINESIS DOPPLER/COLOR FLOW: NORMAL COMMENTS: MILD ANTEROAPICAL HYPOKINESIS. NO THROMBUS. NO EFFUSION. TECHNOLOGIST: LOLA MOREL
[2017-07-14] MEDS: ATORVASTATIN 80 MG TAB PO SCH (22:17)
--- NOTE | 2017-07-15 07:25 | RAD REPORT ---
EXAM DESCRIPTION: Dorys Single View07/15/2017 6:29 am CLINICAL HISTORY: Fever COMPARISON: July 13 FINDINGS: Endotracheal and nasogastric tubes have been removed. The lungs appear clear of acute infiltrate. The heart is normal size IMPRESSION: No acute abnormalities displayed
[2017-07-15] MEDS: COLCHICINE 0.6 MG TAB PO SCH (08:41)
[2017-07-15] MEDS: METOPROLOL TAR 50 MG TAB PO SCH (08:41)
[2017-07-15] MEDS: ASPIRIN 81 MG CHEWABLE TABLET PO SCH (08:43)
[2017-07-15] MEDS: CLOPIDOGREL 75 MG TABLET PO SCH (08:43)
[2017-07-15] MEDS: Enoxaparin 120 MG/0.8 ML SYR SQ SCH (08:44)
[2017-07-15 08:57] VITALS: O2SAT 94
--- NOTE | 2017-07-15 11:19 | PN ---
Date of Progress Note: 07/14/2017 Subjective: Mr. Melgoza had come in on 07/12/2017 with an acute anterior PA status post cardiac arres t, status post emergency angioplasty and stenting of his LAD, was doing very well. EKG showed some n ew ST changes, but the patient is not having any chest pain. He has not had any further rhythm issue s. Asymptomatic. Examination is normal. I will discontinue the amiodarone on Mr. Melgoza today. We will continue low-dose beta blockers, statin, aspirin, and Plavix. Echocardiography that was done t [place] showed a fairly reserved ejection fraction with some anteroapical hypokinesis, but no thrombus. I will move him to telemetry, hopefully send him home in the next day or two. BEVERLY/SANYA Voice ID: [id number] Report ID: [id number]
[2017-07-15 12:17] VITALS: BP 119/70; TEMP 97.4
--- NOTE | 2017-07-15 14:02 | P.DS ---
Admission Date: 07/12/17 Discharge Date: 07/15/17 Primary Care Provider: Dr. Garvin; Cardiology-Dr. Wetzel Disposition: ROUTINE DISCHARGE Discharge Condition: GOOD Reason for Admission: acute CO Consultations: Cardiology-Dr. Michaels Procedures: Heart catheterization: Surgeon: Alexandr Michaels MD Procedure: Emergency heart catheterization, angioplasty and stent of the LAD, selective coronary artery angiogram and left ventriculogram. Indication: Acute CO and status post cardiac arrest. Mr. Melgoza is a 56-year- old white male, brought to the emergency room in cardiac arrest and torsades de pointes. After cardioversion, he had an acute anterolateral CO. He was intubated. The patient was brought to the wharf labourer, intubated with anesthesia on board on protocol. Received some additional Versed for sedation because of agitation. Description Of Procedure: It showed complete occlusion of the LAD close to the ostium. RCA was large dominant. Circumflex was small and nondominant, but normal. RCA was free of disease. It was obvious he had a very proximal stenosis and a sequential stenosis just distal to that before the first diagonal. Two overlapping stents 2.5 x 12 and 2 x 16 Synergy stent was used after multiple dilatation of the balloon. The result was 0% residual. Left ventriculogram was done showing no wall motion abnormalities. There were no arrhythmias during the procedure. ST elevation subsided after the stent. Total conscious sedation was 45 minutes. Complications: None. Blood Loss: 5 cc. Final Diagnosis: Status post acute anterolateral myocardial infarction, status post successful angioplasty and stent of the LAD. The patient received Angiomax during the procedure. He was on heparin and amiodarone drip and he came to the wharf labourer. Heparin was stopped. 600 mg of Plavix were given by the NG tube. Aspirin 325 mg was given by the NG tube. - Problems (1) HTN (hypertension) Status: Chronic Qualifiers: Hypertension type: essential hypertension Qualified Code(s): I10 - Essential (primary) hypertension (2) Hyperlipidemia Status: Chronic Qualifiers: Hyperlipidemia type: unspecified Qualified Code(s): E78.5 - Hyperlipidemia , unspecified (3) Torsades de pointes Status: Acute (4) Cardiac arrest Onset Date: 07/13/17 Status: Acute (5) Obesity Onset Date: 07/13/17 Status: Acute Qualifiers: Obesity type: due to excess calories Obesity classification: adult class 2 (BMI 35 - 39.9) Serious obesity comorbidity presence: unspecified whether serious comorbidity present Body mass index: BMI 36.0-36.9 Qualified Code(s) : E66.09 - Other obesity due to excess calories; Z68.36 - Body mass index (BMI) 36.0-36.9, adult; Z68.36 - Body mass index (BMI) 36.0-36.9, adult (6) STEMI (ST elevation myocardial infarction) Onset Date: 07/13/17 Status: Acute Qualifiers: Involved coronary artery: LAD coronary artery Qualified Code(s): I21.02 - ST elevation (STEMI) myocardial infarction involving left anterior descending coronary artery (7) Sustained VT (ventricular tachycardia) Onset Date: 07/13/17 Status: Acute (8) Obstructive sleep apnea Status: Suspected Brief History of Present Illness: 56-year-old male brought to the Emergency and in cardiac arrest and torsades de pointes. Patient was resuscitated. Patient found to have acute anterior lateral CO. The patient was immediately taken back to the heart catheterization lab. Hospital Course: Patient presented with acute CO and cardiac arrest. Patient was intubated and resuscitated. The patient was immediately sent for heart catheterization. Heart catheterization showed complete occlusion of the LAD close to the ostium. RCA was large dominant. Circumflex was small and nondominant but normal. RCA was free of disease. Proximal stenosis and sequential stenosis just distal to that was noted. Patient required 2 overlapping stents. Result was 0% residual. Patient tolerated the procedure well. Patient was sent to the ICU for close monitoring. The patient was ultimately extubated. Patient was on amiodarone during that time. This was eventually discontinued. He was later transitioned to telemetry. Patient was without any chest pain. No significant short of breath noted. Ejection fraction showed EF of 55%. At discharge patient will continue with aspirin 81 mg 1 pill daily and Plavix 75 mg 1 pill daily. Other new medication includes Toprol XL 50 mg daily and Lipitor 80 mg 1 pill daily. Recommendations for the patient to follow up with cardiology in 1- 2 weeks to follow up this hospitalization. Patient has hyperlipidemia. Patient will be sent home with Lipitor 80 mg 1 pill daily. Recommendation is to recheck lipid panel in 4-6 weeks to monitor his progress. Patient had mild cellulitis to the upper extremities. This occurred during his stay. This remained stable at discharge. At discharge patient will continue with doxycycline 100 mg 1 pill twice daily for 7 days. Patient found to have superficial thrombus of the cephalic veins to the upper extremities. No intervention needed at this time. Patient did not require long -term chronic anti coagulation. Patient already on aspirin and Plavix. This can be followed up by his PCP. Patient has obesity. BMI 36. Patient will continue with [place] diet. Patient has hypertension. Patient will continue with Toprol 50 mg 1 pill daily. Recommendation is to maintain blood pressures less 150/80. Further adjustment can be done by his PCP. Patient may have had underlying obstructive sleep apnea. Recommendation is for the patient to follow up with pulmonology to further evaluate. Vital Signs/Physical Exam: Temp Pulse Resp BP Pulse Ox 97.4 F 62 18 119/70 92 07/15/17 12:00 07/15/17 12:00 07/15/17 12:00 07/15/17 12:00 07/15/17 12:00 General: Alert, In no apparent distress, Oriented x3, Cooperative HEENT: Atraumatic, Mucous membr. moist/pink Neck: Supple Respiratory: Clear to auscultation bilaterally, Normal air movement Cardiovascular: Normal pulses, Regular rate/rhythm Gastrointestinal: Normal bowel sounds, Soft and benign, Non-distended, No ascites, No tenderness, No masses, No rebound, No guarding Musculoskeletal: No erythema, No tenderness, No warmth Integumentary: No tenderness/swelling, No erythema, No warmth, No cyanosis Neurological: Normal speech, Normal strength at 5/5 x4 extr, Normal tone, Normal affect Lymphatics: No axilla or inguinal lymphadenopathy Laboratory Data at Discharge: WBC 13.8 K/uL (4.3-10.9) H 07/14/17 04:45 Hgb 13.9 g/dL (13.6-17.9) 07/14/17 04:45 Hct 42.1 % (39.6-49.0) 07/14/17 04:45 Plt Count 184 K/uL (152-406) D 07/14/17 04:45 Sodium 138 mEq/L (135-145) 07/14/17 04:45 Potassium 4.1 mEq/L (3.6-5.0) 07/14/17 04:45 BUN 15 mg/dL (6-20) 07/14/17 04:45 Creatinine 1.06 mg/dL (0.61-1.24) 07/14/17 04:45 Glucose 132 mg/dL (65-120) H 07/14/17 04:45 Phosphorus 2.8 mg/dL (2.5-4.3) 07/14/17 04:45 Magnesium 2.0 mg/dL (1.8-2.5) 07/14/17 04:45 Total Bilirubin 1.6 mg/dL (0.3-1.2) H 07/14/17 04:45 AST 133 IU/L (10-42) H D 07/14/17 04:45 ALT 114 IU/L (10-60) H 07/14/17 04:45 Alkaline Phosphatase 50 IU/L (42-121) 07/14/17 04:45 Troponin I 34.47 ng/mL (<0.03) H* D 07/13/17 09:20 B-Natriuretic Peptide 13 pg/ml (<=100) 07/12/17 13:50 Triglycerides 294 mg/dL (35-160) H 07/13/17 04:47 Cholesterol 176 mg/dL (<200) 07/13/17 04:47 HDL Cholesterol 27 mg/dL (27-67) 07/13/17 04:47 Cholesterol/HDL Ratio 6.52 07/13/17 04:47 Lipase 46 U/L (22-51) 07/12/17 13:50 Home Medications: Aspirin [Aspirin EC 81 MG] 81 mg PO DAILY #90 tablet. 07/15/17 Atorvastatin Calcium [Lipitor] 80 mg PO DAILY #30 tablet 07/15/17 Clopidogrel Bisulfate [Plavix] 75 mg PO DAILY #30 tablet 07/15/17 Doxycycline Hyclate 100 mg PO BID #14 tablet 07/15/17 Metoprolol Succinate [Toprol Xl] 50 mg PO DAILY #30 tab 07/15/17 New Medications: Aspirin [Aspirin EC 81 MG] 81 mg PO DAILY #90 tablet. Atorvastatin Calcium [Lipitor] 80 mg PO DAILY #30 tablet Clopidogrel Bisulfate [Plavix] 75 mg PO DAILY #30 tablet Doxycycline Hyclate 100 mg PO BID #14 tablet Metoprolol Succinate [Toprol Xl] 50 mg PO DAILY #30 tab Patient Discharge Instructions: 1. Patient will need a follow up with PCP in 1 week to follow up this hospitalization. 2. Patient presented with acute CO and cardiac arrest. Patient was intubated and resuscitated. The patient was immediately sent for heart catheterization. Patient required stent placement. Patient did well post heart catheterization. He was eventually extubated. At discharge she is without any significant chest pain or shortness of breath. At discharge patient will continue with aspirin 81 mg 1 pill daily and Plavix 75 mg 1 pill daily. Other new medication includes Toprol XL 50 mg daily and Lipitor 80 mg 1 pill daily. Recommendations for the patient to follow up with cardiology in 1-2 weeks to follow up this hospitalization. 3. Patient has hyperlipidemia. Patient will be sent home with Lipitor 80 mg 1 pill daily. Recommendation is to recheck lipid panel in 4-6 weeks to monitor his progress. 4. Patient had mild cellulitis to the upper extremities. At discharge patient will continue with doxycycline 100 mg 1 pill twice daily for 7 days. 5. Patient found to have superficial thrombus of the cephalic veins. No intervention needed at this time. This includes medication. Patient already on aspirin and Plavix. This can be followed up by his PCP. 6. Patient has obesity. BMI 36. Patient will continue with [place] [employer] diet. 7. Patient has hypertension. Patient will continue with Toprol 50 mg 1 pill daily. Recommendation is to maintain blood pressures less 150/80. Further adjustment can be done by his PCP. Diet: AHA Activity: Ad lorna Followup: Armando Garvin MD [Primary Care Provider] - 1-2 Weeks (call to schedule an appointment) Zackary Clements MD [ACTIVE - CAN ADMIT] - 1-2 Weeks (call to schedule an appointment) Time spent managing pt's care (in minutes): 55
--- NOTE | 2017-07-16 15:59 | PN ---
Date of Progress Note: 07/15/2017 Mr. Melgoza came in on 07/12/2017 with an acute anterior OH, status post LAD stent. He was intubated on amiodarone, has been extubated now for 48 hours, off amiodarone for 48 hours. No arrhythmias. Th e patient is feeling great, ambulating without any symptoms. The right groin is intact. Has bilater al superficial cephalic vein thrombosis, probably secondary to the amiodarone that was treated with a ntibiotics, aspirin and decompressive. He does not need to be on blood thinners for that. He should be on aspirin, Plavix, Toprol, and Lipitor. He can go home and he will be seen in the office in nex t 2 weeks. I will also put him on doxycycline 100 b.i.d. for the cellulitis of his left arm. BEVERLY/SANYA Voice ID: [id number] Report ID: [id number]
== END 2017-07-15 12:42 | disposition home or self-care (01) | DRG 246 ==
LOC: ER 13:40 → CCL 14:48 → 3RD-ICU 15:38 → 4TH 07-14 11:00
PROVIDERS: ADMIT Internal Medicine; ATTEND Family Medicine
PROC: 027045Z Dilation of Coronary Artery, One Artery with Two Drug-eluting Intraluminal Devices, Percutaneous Endoscopic Approach (ICD-10-PCS; principal; 2017-07-12)
PROC: 4A023N7 Measurement of Cardiac Sampling and Pressure, Left Heart, Percutaneous Approach (ICD-10-PCS; 2017-07-12)
PROC: B211YZZ Fluoroscopy of Multiple Coronary Arteries using Other Contrast (ICD-10-PCS; 2017-07-12)
PROC: 0BH17EZ Insertion of Endotracheal Airway into Trachea, Via Natural or Artificial Opening (ICD-10-PCS; 2017-07-12)
PROC: 5A1945Z Respiratory Ventilation, 24-96 Consecutive Hours (ICD-10-PCS; 2017-07-12)
DX: I21.09 ST elevation (STEMI) myocardial infarction involving other coronary artery of anterior wall (principal); I49.01 Ventricular fibrillation; I46.2 Cardiac arrest due to underlying cardiac condition; I47.2 Ventricular tachycardia; L03.114 Cellulitis of left upper limb; L03.113 Cellulitis of right upper limb; I82.611 Acute embolism and thrombosis of superficial veins of right upper extremity; I82.612 Acute embolism and thrombosis of superficial veins of left upper extremity; I10 Essential (primary) hypertension; E66.9 Obesity, unspecified; E78.5 Hyperlipidemia, unspecified; G47.33 Obstructive sleep apnea (adult) (pediatric); Z68.36 Body mass index [BMI] 36.0-36.9, adult
CPT/HCPCS: 31500; 36415; 51702; 71045; 80048; 80053; 80061; 80076; 82550; 82553; 82805; 83690; 83735; 83880; 84100; 84484; 85025; 85347; 92928; 92960; 93005; 93306; 93458; 93970; 94002; 99285; C1725; C1877; C1893; J0171; J0282; J0330; J0583; J1644; J1650; J1720; J2250; J2270; J2405; J3010; J3475; J7030; J7060